=== PATIENT | male | born 1955 | race Caucasian/White ===

== ENCOUNTER 2017-01-22 11:27 | Inpatient (IN) | payer OTHER ==
[2017-01-22] MEDS ORDERED: ONDANSETRON 4 MG/2 ML VIAL IVPUSH ONE (12:14)
[2017-01-22] MEDS ORDERED: SODIUM CHLORIDE 1,000 ML IV SCH ×2 (12:15→15:45)
[2017-01-22 12:19] LABS: BASOPHIL 2.3 % (0-2.0); EOSINOPHIL 0.7 % (0-4.5); MCH 29.5 pg (25.7-33.7); MCHC 34.1 g/dl (32.0-35.9); MEAN CELL VOLUME 86.6 fl (80-96); MEAN PLT VOLUME 9.7 fl (7.5-11.1); NEUTROPHILS 84.4 % (42.8-82.8); PLATELET COUNT 178 K/MM3 (134-434); RDW 12.2 % (11.9-15.9); WHITE BLOOD COUNT 11.9 K/mm3 (4.0-10.8)
[2017-01-22] MEDS ORDERED: ONDANSETRON 4 MG/2 ML VIAL ONE (12:24)
--- NOTE | 2017-01-22 12:25 | PDOC ---
Attending Attestation - Resident Resident Name: Luna Vazquez - ED Attending Attestation I have performed the following: I have examined & evaluated the patient, The case was reviewed & discussed with the resident, I agree w/resident's findings & plan - HPI HPI: 01/22/17 12:23 61 y/o male with abdominal pain since last night. No fever or chills. No SOB or chest pain. Ate some food last night which may not have agreed with him. Feels nauseous but no vomiting. Was in hospital in the past for bowel problems. - Physicial Exam PE: 01/22/17 12:24 VS stable Heent: WNL Heart RRR w/o murmur Lungs CTA b/l no wheezes rhochi or rales Abdomen: LLQ and LUQ tenderness +BS, no RLQ or LRUQ tenderness , no pulsatile masses EXT neg C/C/E Neuro: grossly intact 01/22/17 14:35 EKG NSR @ 60 01/22/17 17:16 Spoke to Hospitalist, Dr. Garibay, accepting physician Called Surgeon Dr. Ramirez, 3x, no response Spoke with Dr. Gonzalez, pt used him last time in hospital, will see pt Family in agreement with plan NGT place by nurse Shafer, 2500cc extracted - Medical Decision Making 01/22/17 17:19 A: SBO, hyperkalemia P: Surgical consult,admission 01/22/17 17:19 Agree with plan and resident Dr. Vazquez
[2017-01-22 12:26] LABS: URINE APPEARANCE Clear; URINE BILIRUBIN Negative (NEGATIVE); URINE BLOOD Negative (NEGATIVE); URINE GLUCOSE (UA) 2+ (NEGATIVE); URINE KETONE Negative (NEGATIVE); URINE LEUK ESTERASE Negative (NEGATIVE); URINE NITRITE Negative (NEGATIVE); URINE UROBILINOGEN 0.2 (0.2-1.0)
[2017-01-22 12:28] LABS: URINE COLOR YELLOW; URINE PROTEIN 1+ (NEGATIVE)
[2017-01-22 12:29] LABS: ALK PHOS 48 U/L (32-92); ANION GAP 7 (8-16); CO2 24 mmol/L (22-28); CREATININE 1.6 mg/dl (0.6-1.3); SGOT/AST 18 U/L (10-42); SGPT/ALT 21 U/L (10-40)
[2017-01-22 12:38] LABS: GLUCOSE,RANDOM 363 mg/dl (74-106)
[2017-01-22] MEDS ORDERED: INSULIN REGULAR HUMAN 100 UNITS/ML *VIAL IVPUSH ONE ×2 (12:38→15:43)
[2017-01-22] MEDS ORDERED: INSULIN REGULAR HUMAN 100 UNITS/ML *VIAL ONE ×2 (12:49→16:14)
[2017-01-22 13:34] LABS: URINE RBC 0-1 /hpf (0-3); URINE WBC 0-3 (3-5)
[2017-01-22] MEDS ORDERED: HEMOQUE CONTROL SOLUTION ONE (14:09)
[2017-01-22] MEDS ORDERED: HEMOQUE TEST 1 EACH EACH ONE ×3 (14:11→18:29)
--- NOTE | 2017-01-22 14:44 | PDOC ---
History of Present Illness - General Chief Complaint: Pain, Acute Stated Complaint: ABD PAIN Time Seen by Provider: 01/22/17 11:37 - History of Present Illness Initial Comments: 61 year old male diabetic (non-insulin dependent) with history of SBO presenting with one day of abdominal pain and distension. Patient states that he has some spicy [place] food in the previous evening and has since had some left sided abdominal pain radiating from his flank to his lower left abdomen. The pain is at worse a 4-5/10 and is described a dull achy pain without relieving or exacerbating factors. He admits to a bit of nausea but no vomiting and is able to keep food down. He has had two bowel movements this morning that he said were formed and were non-bloody. However, he does have some bright red blood occasionally on his toilet paper consistent with his history of internal hemorrhoids. He had a SBO and was admitted for three days in 2013 during which surgical evaluation was considered but his SBO resolved spontaneously. He denies chest pain, palpitations, SOB, diaphoresis, cough, fevers, chills, or other sick symptoms. 01/22/17 16:04 Past History - Past Medical History Allergies/Adverse Reactions: Allergies Allergy/AdvReac Type Severity Reaction Status Date / Time No Known Allergies Allergy Verified 01/22/17 11:31 Home Medications: Ambulatory Orders Amlodipine Besylate [Norvasc -] 10 mg PO DAILY 01/22/17 Aspirin [ASA -] 81 mg PO DAILY 01/22/17 Atorvastatin Ca [Lipitor] 40 mg PO HS 01/22/17 Gabapentin 300 mg PO BID 01/22/17 Glipizide [Glipizide ER] 10 mg PO BID 01/22/17 Lisinopril [Prinivil -] 40 mg PO DAILY 01/22/17 Losartan Potassium [Cozaar] 100 mg PO DAILY 01/22/17 Metformin HCl [Glucophage] 1,000 mg PO BID 01/22/17 Anemia: No Asthma: No Cancer: No Cardiac Disorders: No CVA: No COPD: No CHF: No Dementia: No Diabetes: Yes GI Disorders: No Disorders: No HTN: Yes Hypercholesterolemia: Yes Liver Disease: No Seizures: No Thyroid Disease: No - Immunization History Td Vaccination: No - Psycho/Social/Smoking Cessation Hx Anxiety: No Suicidal Ideation: No Smoking Status: No Smoking History: Never smoked Have you smoked in the past 12 months: No Number of Cigarettes Smoked Daily: 0 Hx Alcohol Use: No Drug/Substance Use Hx: No Substance Use Type: None Hx Substance Use Treatment: No Review of Systems - Review of Systems Constitutional: No: Chills, Diaphoresis, Fever, Loss of Appetite HEENTM: No: Blurred Vision, Recent change in vision Respiratory: No: Cough, Shortness of Breath, Productive cough Cardiac (ROS): No: Chest Pain, Irregular Heart Rate, Lightheadedness, Palpitations ABD/GI: Yes: Abdominal cramping. No: Abdominal Distended, Constipated, Diarrhea : No: Burning, Dysuria, Frequency Integumentary: No: Erythema, Flushing, Lesions *Physical Exam - Vital Signs Last Vital Signs Temp Pulse Resp BP Pulse Ox 97.9 F 64 18 129/78 100 01/22/17 11:31 01/22/17 14:22 01/22/17 14:22 01/22/17 14:22 01/22/17 14:22 - Physical Exam General Appearance: Yes: Nourished, Appropriately Dressed. No: Apparent Distress HEENT: positive: EOMI, KIZZY, Other (ablyopia in his left eye) Neck: positive: Trachea midline, Normal Thyroid, Supple. negative: Tender, Rigid Respiratory/Chest: positive: Lungs Clear, Normal Breath Sounds. negative: Chest Tender, Respiratory Distress, Accessory Muscle Use Cardiovascular: positive: Regular Rhythm, Regular Rate. negative: S1, S2, Edema , Murmur Gastrointestinal/Abdominal: positive: Tender (left upper and lower quadrant tenderness to light palpation), Soft, Increased Bowel Sounds. negative: Normal Bowel Sounds, Flat, Pulsatile Mass, Distended, Guarding, Rebound Musculoskeletal: positive: Normal Inspection. negative: CVA Tenderness, CVA Tenderness (R), CVA Tenderness (L), Decreased Range of Motion Extremity: positive: Normal Inspection, Normal Range of Motion Integumentary: positive: Normal Color, Dry, Warm Neurologic: positive: Fully Oriented, Alert, Normal Mood/Affect, Normal Response ED Treatment Course - LABORATORY CBC & Chemistry Diagram: 01/22/17 12:00 01/22/17 15:00 - ADDITIONAL ORDERS Additional order review: Laboratory Results 01/22/17 01/22/17 01/22/17 12:00 12:00 12:00 Sodium 132 L Potassium 6.4 H* D Chloride 101 Carbon Dioxide 24 Anion Gap 7 L BUN 37 H D Creatinine 1.6 H Creat Clearance w eGFR 44.02 Random Glucose 363 H* D Calcium 9.0 Total Bilirubin 1.0 D AST 18 D ALT 21 Alkaline Phosphatase 48 Total Protein 7.0 Albumin 4.0 Lipase 29 Urine Color Yellow Urine Appearance Clear Urine pH 5.0 Ur Specific [place] 1.015 Urine Protein 1+ H Urine Glucose (UA) 2+ H Urine Ketones Negative Urine Blood Negative Urine Nitrite Negative Urine Bilirubin Negative Urine Urobilinogen 0.2 Ur Leukocyte Esterase Negative Urine RBC 0-1 Urine WBC 0-3 Ur Epithelial Cells 0-3 01/22/17 12:00 RBC 5.44 MCV 86.6 MCHC 34.1 RDW 12.2 MPV 9.7 Neutrophils % 84.4 H D Lymphocytes % 8.7 D Monocytes % 3.9 Eosinophils % 0.7 D Basophils % 2.3 H D - RADIOLOGY Radiology Studies Ordered: Category Date Time Status ABDOMEN & PELVIS CT W/O CONTR [CT] Stat CT Scan 01/22/17 12:53 Taken - Medications Given in the ED: ED Medications Discontinued Medications Generic Name Dose Route Start Last Admin Trade Name Freq PRN Reason Stop Dose Admin Insulin Human Regular 6 units 01/22/17 12:38 01/22/17 12:51 Novolin R Vial *For Ivpush Or Iv Drip Only* IVPUSH 01/22/17 12:39 6 unit ONCE ONE Administration Ondansetron HCl 4 mg 01/22/17 12:14 01/22/17 12:27 Zofran Injection IVPUSH 01/22/17 12:15 4 mg ONCE ONE Administration Medical Decision Making - Medical Decision Making 61 year old male diabetic with PMH of SBO presenting with left sided abdominal pain x 1 day. This is most concerning for repeat episode of SBO vs. gastroparesis. Also highly possible is gastritis or PUD. Less likely but also possible is kidney stone or cholelithiasis although he has not history of these pathologies. CT demonstrating SBO possibly at the top of the descending colon or along transverse colon. Labs significant for hyperglycemia at 336 and hyperkalemia at 6.4 with creatinine of 1.6. 6 of insulin administered with 1 liter normal saline. T waves slightly elevated. Repeat potassium 3 hours later 5.7 so will administer 4 more insulin 1 more liter IV NS/ 2 hr and keep patient NPO with NG tube to suction. 01/22/17 16:34 01/22/17 16:51 We attempted to call the [facility] ([facility]) without response x3 with 30 minute spacing in between. The patient mentioned that he was evaluated by Dr. Gonzalez during his previous admission for SBO in the past and would like to have him evaluate him again. Der. Gonzalez was called at 16:49 and agreed to evaluate the patient at 16:50 PM. We also spoke the medical staff coordinator Dr. Capone at approximately 16:30 01/22/17 17:19 *DC/Admit/Observation/Transfer Diagnosis at time of Disposition: SBO (small bowel obstruction), Hyperkalemia, Hyperglycemia - Discharge Dispostion Condition at time of disposition: Stable Admit: Yes - Attestations Physician Attestion: 01/22/17 15:46 I, Dr. Luna Vazquez, attest that this document has been prepared under my direction and personally reviewed by me in its entirety. I further attest, that it accurately reflects all work, treatment, procedures and medical decision -making performed by me.
[2017-01-22 15:33] LABS: ALBUMIN 3.7 g/dl (3.5-5.0); ALK PHOS 47 U/L (32-92); ANION GAP 5 (8-16); BILIRUBIN,TOTAL 0.6 mg/dl (0.2-1.0); CALCIUM 8.9 mg/dl (8.4-10.2); CO2 28 mmol/L (22-28); CREATININE 1.5 mg/dl (0.6-1.3); GLUCOSE,RANDOM 235 mg/dl (74-106); SGOT/AST 18 U/L (10-42); SGPT/ALT 20 U/L (10-40); TOT PROT 6.7 g/dl (6.4-8.3)
[2017-01-22] MEDS ORDERED: LIDOCAINE HCL 2% JELLY (5 ML/TUBE) ONE ×2 (15:55→16:51)
[2017-01-22] MEDS ORDERED: LIDOCAINE HCL 2% JELLY (30 ML/TUBE) TP ONE (15:56)
[2017-01-22] MEDS ORDERED: INSULIN SLIDING SCALE (NOVOLOG) 1 VIAL SQ SCH (16:30)
--- NOTE | 2017-01-22 18:09 | CONSULT ---
Consult - text type - Consultation Consultation Note: 61 y.o male presents to [facility] with 1 day history of epigastric pain and nausea. Pt with history of SBO 3 years ago treated with NGT decompression. Pt states pain began last evening after dinner and continued this AM. Pt states had 2 small , hard BM today. PMHx- DM, GERD, Renal Insufficiency, Hypertension PSHx- negative Meds-Lisinopril, Losartan Potassium, Norvasc, Gabapentin, Glipizide, Metformin, Lipitor P/E- Gen- Awake, alert but sedated, in NAD Heent- tongue-dry no masses Abd- slight distention, soft, non-tender on palpation No rebound No guarding WBC-11.9 H/H- 16/47.1 K-5.7 (decreased from 6.4) BUN-34 CR-1.5 Glu-235 I- Small Bowel Obstruction Hyperkalemia Rec- NPO Continue NGT decompression OOB Hospitalist to treat K+ level, Glucose Abdominal flat/upright in AM Will follow
[2017-01-22] MEDS ORDERED: ONDANSETRON 4 MG/2 ML VIAL IVPB PRN (19:26)
[2017-01-22 21:11] VITALS: BMI 28.3
[2017-01-22] MEDS: INSULIN SLIDING SCALE (NOVOLOG) 1 VIAL SQ SCH (21:41)
[2017-01-22] MEDS: HEPARIN NA (PORCINE) 5,000 UNITS/ML 1ML VIAL SQ SCH (21:41)
--- NOTE | 2017-01-22 22:29 | HP ---
CHIEF COMPLAINT: abdominal pain PCP: Derrell Kennedy HISTORY OF PRESENT ILLNESS: This is a 61 year old male with significant past medical history of SBO and DM who presented with abdominal pain since last night. + nausea; no vomiting. 2 BMs this morning, hard but otherwise normal. Reports he had a similar episode in 2013, was admitted for 3 days with NGT and it resolved without surgical intervention. ER course was notable for: (1) CT c/w SBO (2) glucose 363, repeat 235 (3) K 6.4, Repeat 5.7 (4) NGT with 2500cc output Recent Travel: pt denies PAST MEDICAL HISTORY: DM, HTN, HLD, SBO, internal hemorrhoids Social History: Smoking: pt denies Alcohol: pt denies Drugs: pt denies Family History: mother , age 80s, CVA father , age 72, OR, DM, CVA brother with OR in his 40s, age 64 brother with OR in 40s, alive sister, BrCA, alive Allergies No Known Allergies Allergy (Verified 01/22/17 11:31) HOME MEDICATIONS: 3 Medication Instructions Recorded Amlodipine Besylate [Norvasc -] 10 mg PO DAILY 01/22/17 Aspirin [ASA -] 81 mg PO DAILY 01/22/17 Atorvastatin Ca [Lipitor] 40 mg PO HS 01/22/17 Gabapentin 300 mg PO BID 01/22/17 Glipizide [Glipizide ER] 10 mg PO BID 01/22/17 Lisinopril [Prinivil -] 40 mg PO DAILY 01/22/17 Losartan Potassium [Cozaar] 100 mg PO DAILY 01/22/17 Metformin HCl [Glucophage] 1,000 mg PO BID 01/22/17 REVIEW OF SYSTEMS CONSTITUTIONAL: Absent: fever, chills, diaphoresis, generalized weakness, malaise, loss of appetite, weight change HEENT: Absent: rhinorrhea, nasal congestion, throat pain, throat swelling, difficulty swallowing, mouth swelling, ear pain, eye pain, visual changes CARDIOVASCULAR: Absent: chest pain, syncope, palpitations, irregular heart rate, lightheadedness , peripheral edema RESPIRATORY: Absent: cough, shortness of breath, dyspnea with exertion, orthopnea, wheezing, stridor, hemoptysis GASTROINTESTINAL: Present: abdominal pain, nausea Absent: abdominal distension, vomiting, diarrhea, constipation, melena, hematochezia GENITOURINARY: Absent: dysuria, frequency, urgency, hesitancy, hematuria, flank pain, genital pain MUSCULOSKELETAL: Absent: myalgia, arthralgia, joint swelling, back pain, neck pain SKIN: Absent: rash, itching, pallor HEMATOLOGIC/IMMUNOLOGIC: Absent: easy bleeding, easy bruising, lymphadenopathy, frequent infections ENDOCRINE: Absent: unexplained weight gain, unexplained weight loss, heat intolerance, cold intolerance NEUROLOGIC: Absent: headache, focal weakness or paresthesias, dizziness, unsteady gait, seizure, mental status changes, bladder or bowel incontinence PSYCHIATRIC: Absent: anxiety, depression, suicidal or homicidal ideation, hallucinations. PHYSICAL EXAMINATION Vital Signs - 24 hr 3 01/22/17 01/22/17 11:31 14:22 16:14 18:36 Temperature 97.9 F 98.8 F 98.6 F Pulse Rate 63 75 Pulse Rate [ 64 67 Apical] Respiratory 16 18 17 16 Rate Blood Pressure 143/94 127/70 Blood Pressure 129/78 119/73 [Left Arm] O2 Sat by Pulse 100 100 97 Oximetry (%) GENERAL: Awake, alert, and fully oriented, in no acute distress. HEAD: Normal with no signs of trauma. EYES: Pupils equal, round and reactive to light, extraocular movements intact, sclera anicteric, conjunctiva clear. No lid lag. EARS, NOSE, THROAT: Ears normal, nares patent, oropharynx clear without exudates. Moist mucous membranes. NECK: Normal range of motion, supple without lymphadenopathy, JVD, or masses. LUNGS: Breath sounds equal, clear to auscultation bilaterally. No wheezes, and no crackles. No accessory muscle use. HEART: Regular rate and rhythm, normal S1 and S2 without murmur, rub or gallop. ABDOMEN: Soft, nontender, not distended, normoactive bowel sounds, no guarding, no rebound, no masses. No hepatomegaly or splenomegaly. MUSCULOSKELETAL: Normal range of motion at all joints. No bony deformities or tenderness. No CVA tenderness. UPPER EXTREMITIES: 2+ pulses, warm, well-perfused. No cyanosis. No clubbing. No peripheral edema. LOWER EXTREMITIES: 2+ pulses, warm, well-perfused. No calf tenderness. No peripheral edema. NEUROLOGICAL: Cranial nerves II-XII intact. Normal speech. Normal gait. PSYCHIATRIC: Cooperative. Good eye contact. Appropriate mood and affect. SKIN: Warm, dry, normal turgor, no rashes or lesions noted, normal capillary refill. Laboratory Results - last 24 hr 3 01/22/17 01/22/17 01/22/17 12:00 12:00 12:00 WBC 11.9 H D RBC 5.44 Hgb 16.0 Hct 47.1 MCV 86.6 MCH 29.5 MCHC 34.1 RDW 12.2 Plt Count 178 MPV 9.7 Neutrophils % 84.4 H D Lymphocytes % 8.7 D Monocytes % 3.9 Eosinophils % 0.7 D Basophils % 2.3 H D Sodium 132 L Potassium 6.4 H* D Chloride 101 Carbon Dioxide 24 Anion Gap 7 L BUN 37 H D Creatinine 1.6 H Creat Clearance w eGFR 44.02 POC Glucometer Random Glucose 363 H* D Calcium 9.0 Total Bilirubin 1.0 D AST 18 D ALT 21 Alkaline Phosphatase 48 Total Protein 7.0 Albumin 4.0 Lipase Urine Color Yellow Urine Appearance Clear Urine pH 5.0 Ur Specific [place] 1.015 Urine Protein 1+ H Urine Glucose (UA) 2+ H Urine Ketones Negative Urine Blood Negative Urine Nitrite Negative Urine Bilirubin Negative Urine Urobilinogen 0.2 Ur Leukocyte Esterase Negative Urine RBC 0-1 Urine WBC 0-3 Ur Epithelial Cells 0-3 3 01/22/17 01/22/17 01/22/17 12:00 15:00 21:32 WBC RBC Hgb Hct MCV MCH MCHC RDW Plt Count MPV Neutrophils % Lymphocytes % Monocytes % Eosinophils % Basophils % Sodium 138 Potassium 5.7 H Chloride 105 Carbon Dioxide 28 Anion Gap 5 L BUN 34 H Creatinine 1.5 H Creat Clearance w eGFR 47.42 POC Glucometer 125 Random Glucose 235 H D Calcium 8.9 Total Bilirubin 0.6 D AST 18 ALT 20 Alkaline Phosphatase 47 Total Protein 6.7 Albumin 3.7 Lipase 29 Urine Color Urine Appearance Urine pH Ur Specific [place] Urine Protein Urine Glucose (UA) Urine Ketones Urine Blood Urine Nitrite Urine Bilirubin Urine Urobilinogen Ur Leukocyte Esterase Urine RBC Urine WBC Ur Epithelial Cells ABDOMEN PELVIS CT W/O CONTR Clinical history: Pain and abdominal distention. Evaluate for SBO. Comparison: 07/26/2013. Contiguous transaxial images were obtained from the diaphragmatic domes and pubic symphysis after the administration of oral contrast. Lung bases: 7 mm nodule left lower lobe on image #2 of series #5. This area was not included on the prior study. She be correlated with a PET scan. Smaller posterior nodule image #3. Tiny subpleural nodule on the left image #9. Mild right posterior atelectatic changes. Minimal anterior and posterior pericardial fluid or thickening. Bone: Osteopenia and degenerative changes. Liver: Negative. Gallbladder: Negative. Biliary tree: Negative. Spleen: Negative. Pancreas: Negative. Adrenals: Small left adrenal adenoma measuring 11 mm. Kidneys: Small nonobstructing calculus right kidney. Pelvis: Distended urinary bladder with mild wall thickening. Mild prostatic enlargement. Free pelvic fluid. Bowel: Distended fluid-filled stomach and small bowel loops with a transition zone suggested in the left mid abdomen. There is fecalization loops. There is question of stricture on the sagittal sequence on image #75 although it is difficult to confirm on the other sequences. There is free fluid in the pelvis, mesentery and around the liver suggesting possible peritonitis. No free air or contrast extravasation is seen. Findings are consistent with a small bowel obstruction. Appendix is unremarkable. Mild diverticulosis. Other: Negative. Impression: Moderately severe small bowel obstruction with fecalization of loops. There is free fluid suggesting possible peritonitis. No free air or extravasation of contrast is seen. Consider repeat imaging to see if the exact point of transition can be delineated. Pulmonary nodules. A 7 mm nodule in the left lower lobe can be evaluated with a PET scan. Other findings as above. Reported By: Tono Leslie MD 01/22/17 1520 CHEST X-RAY PORTABLE* Status post NG tube placement Portable chest x-ray, frontal view. Left lower lateral chest wall and the lateral costophrenic angle was not included. Since prior chest x-ray dated 11/24/2014, the cardiac silhouette remains within normal limits in size. Included lung is clear. Mediastinum and visualized osseous structures appear intact. Distal end of the NG tube is in distal portion of the stomach likely at its junction with the proximal duodenum Impression: Suboptimal examination, as described above. Included lung is clear a Distal and of the NG tube is likely at the junction of the stomach and duodenum. Reported By: Adali Montgomery MD 01/22/17 1744 ECG NSR, Rate 60, QTC [address]/T wave changes ASSESSMENT/PLAN: 61yM with PMH HTN, HLD, DM, SBO, internal hemorrhoids presented to the ED with abdominal pain and nausea. He has been admitted for further evaluation and treatment. SBO - NPO - Cont NGT to suction - surgical consult appreciated - Xray in am - morphine PRN for pain, patient advised judicious use - zofran PRN for nausea Hypokalemia - insulin given in ED, repeat improved, repeat in am DM - po meds held - BGM QID with insulin sliding scale. - A1c in am HTN - po meds on hold. Monitor BP for need for IV enalapril HLD - hold po meds DVT PPX - heparin 5000u SC tid FEN - NS @ 125cc/hr - BMP in am - NPO Dispo: Pt currently requires inpatient management of his emergent condition. Visit type - Emergency Visit Emergency Visit: Yes ED Registration Date: 01/22/17 Care time: The patient presented to the Emergency Department on the above date and was hospitalized for further evaluation of their emergent condition. - New Patient This patient is new to me today: Yes Date on this admission: 01/22/17 - Critical Care Critical Care patient: No
[2017-01-23] MEDS: HEPARIN NA (PORCINE) 5,000 UNITS/ML 1ML VIAL SQ SCH ×3 (05:27→21:17)
[2017-01-23] MEDS: INSULIN SLIDING SCALE (NOVOLOG) 1 VIAL SQ SCH ×3 (06:30→17:35)
--- NOTE | 2017-01-23 08:12 | PN ---
Physical Exam: SUBJECTIVE: Patient seen and examined, reports intermittent abdominal cramping reports flatus. OBJECTIVE: patient is a 61 year old male with significant past medical history of SBO (medical management), hypertension, and DM. Patient was admitted from the emergency department for a SBO. Intake & Output 01/22/17 01/23/17 01/23/17 23:59 07:59 15:59 Intake Total 2000 1125 Output Total 2500 1100 Balance -500 25 Weight 84.538 kg Intake: IV 2000 1125 Normal Saline - 1,000 ml 1125 @ 125 mls/hr IV ASDIR NEGRO Rx#:[id number] Normal Saline - 1,000 ml 2000 @ 500 mls/hr IV ASDIR NEGRO Rx#:[id number] Oral 0 0 Output: Gastric Drainage 2500 400 Urine 700 Void 700 Other: Voiding Method Toilet Toilet Bowel Movement No Height 5 ft 8 in Body Mass Index (BMI) 28.3 Weight Measurement Method Standing Scale Vital Signs Period Temp Pulse Resp BP Sys/Cano Pulse Ox Last 24 Hr 98.5 F-98.6 F 67-96 16-20 117-147/62-74 97-99 GENERAL: The patient is awake, alert, and fully oriented, in no acute distress. HEAD: Normal with no signs of trauma. EYES: PERRL, extraocular movements intact, sclera anicteric, conjunctiva clear. No ptosis. ENT: Ears normal, nares patent, oropharynx clear without exudates, moist mucous membranes. NECK: Trachea midline, full range of motion, supple. LUNGS: Breath sounds equal, clear to auscultation bilaterally, no wheezes, no crackles, no accessory muscle use. HEART: Regular rate and rhythm, S1, S2 without murmur, rub or gallop. ABDOMEN: Soft, diffuse abdominal tenderness, nondistended, hypoactive to bowel sounds to the right lower quadrant, no guarding, no rebound, no hepatosplenomegaly, no masses. NGT billious drainage 400ml of drainage within the past 12 hours EXTREMITIES: 2+ pulses, warm, well-perfused, no edema. NEUROLOGICAL: Cranial nerves II through XII grossly intact. Normal speech, gait not observed. PSYCH: Normal mood, normal affect. SKIN: Warm, dry, normal turgor, no rashes or lesions noted Laboratory Results - last 24 hr 01/22/17 01/23/17 21:32 05:35 POC Glucometer 125 192 Active Medications Generic Name Dose Route Start Last Admin Trade Name Freq PRN Reason Stop Dose Admin Benzocaine/Menthol 1 each 01/22/17 21:47 01/23/17 10:55 Cepacol Lozenge - MM 1 each PRN PRN Administration SORE THROAT Heparin Sodium (Porcine) 5,000 unit 01/22/17 22:00 01/23/17 05:27 Heparin - SQ 5,000 unit TID NEGRO Administration Sodium Chloride 1,000 mls @ 100 mls/hr 01/23/17 08:15 01/23/17 10:53 1/2 Normal Saline IV 100 mls/hr ASDIR NEGRO Administration Insulin Aspart 1 vial 01/22/17 22:00 01/23/17 11:34 Novolog Vial Sliding Scale - SQ 3 units ACHS NEGRO Administration Protocol Morphine Sulfate 2 mg 01/22/17 19:26 Morphine Injection - IVPUSH Q4H PRN PAIN Ondansetron HCl 4 mg 01/22/17 19:26 Zofran Injection IVPB Q6H PRN NAUSEA IMAGING ABDOMEN PELVIS CT W/O CONTR Clinical history: Impression: Moderately severe small bowel obstruction with fecalization of loops. There is free fluid suggesting possible peritonitis. No free air or extravasation of contrast is seen. Consider repeat imaging to see if the exact point of transition can be delineated. Pulmonary nodules. A 7 mm nodule in the left lower lobe can be evaluated with a PET scan. Other findings as above. Reported By: Tono Leslie MD 01/22/17 1520 CHEST X-RAY PORTABLE* Status post NG tube placement Portable chest x-ray, frontal view. Impression: Suboptimal examination, as described above. Included lung is clear a Distal and of the NG tube is likely at the junction of the stomach and duodenum. Reported By: Adali Montgomery MD 01/22/17 3514 ABD FLAT/UPRIGHT XRAY: small bowel obstruction resolving vs partial sbo ECG NSR, Rate 60, QTC [address]/T wave changes ASSESSMENT/PLAN: 1) SBO - abd xray reviewed, partial sbo noted, continue ngt to lcws - continue with serial xrays - surgery, Dr Duarte consulted and following - npo -->ivf 2) DM - continue fingersticks achs with regular insulin coverage - pending hgb a1c, tsh and t4 3) card hypertension - b/p at goal, strict b/p monitoring - may need IV enalapril b/p q6h hyperlipidemia - hold lipitor 4) adria - creatine 1.2 (downtrending) creatine 0.7, likely secondary to hypovolemia - continue iv hydration, repeat bmp in am DVT PPX - heparin 5000u SC tid FEN - 1/2 NS @ 100cc/hr - BMP in am - NPO Dispo: Pt currently requires inpatient management of his emergent condition. Visit type - Emergency Visit Emergency Visit: Yes ED Registration Date: 01/22/17 Care time: The patient presented to the Emergency Department on the above date and was hospitalized for further evaluation of their emergent condition. - New Patient This patient is new to me today: Yes Date on this admission: 01/23/17 - Critical Care Critical Care patient: No - Discharge Referral Referred to [facility] Med P.C.: No
[2017-01-23 08:52] LABS: BASOPHIL 0.3 % (0-2.0); EOSINOPHIL 3.5 % (0-4.5); MCHC 34.3 g/dl (32.0-35.9); MEAN CELL VOLUME 87.5 fl (80-96); MEAN PLT VOLUME 9.5 fl (7.5-11.1); NEUTROPHILS 72.2 % (42.8-82.8); PLATELET COUNT 141 K/MM3 (134-434); RDW 12.1 % (11.9-15.9); WHITE BLOOD COUNT 7.2 K/mm3 (4.0-10.8)
[2017-01-23 08:55] LABS: INR 1.05 (0.82-1.09); PROTHROMBIN TIME (PATIENT) 11.7 SEC (10.2-13.0)
[2017-01-23 09:00] LABS: ALK PHOS 44 U/L (32-92); ANION GAP 6 (8-16); BILIRUBIN,TOTAL 0.9 mg/dl (0.2-1.0); CALCIUM 7.9 mg/dl (8.4-10.2); CO2 23 mmol/L (22-28); CREATININE 1.2 mg/dl (0.6-1.3); GLUCOSE,RANDOM 205 mg/dl (74-106); MAGNESIUM 1.6 mg/dL (1.8-2.4); PHOSPHOROUS 2.7 mg/dl (2.5-4.6); SGOT/AST 14 U/L (10-42); SGPT/ALT 17 U/L (10-40); TOT PROT 5.5 g/dl (6.4-8.3)
[2017-01-23] MEDS ORDERED: MAGNESIUM SULFATE 2 GM in SODIUM CHLORIDE 100 ML IVPB ONE (10:00)
--- NOTE | 2017-01-23 10:10 | EKG ---
Test Reason : Blood Pressure : / mmHG Vent. Rate : 060 BPM Atrial Rate : 060 BPM P-R Int : 192 ms QRS Dur : 094 ms QT Int : 406 ms P-R-T Axes : 063 032 040 degrees QTc Int : 406 ms NORMAL SINUS RHYTHM NORMAL ECG NO PREVIOUS ECGS AVAILABLE Confirmed by BEREKET TERRY MD ([id number]) on 01/23/2017 10:09:53 AM Referred By: VESNA LANGE Confirmed By:BEREKET TERRY MD
[2017-01-23] MEDS: SODIUM CHLORIDE 0.45% 1,000 ML IV SCH (10:53)
[2017-01-23] MEDS: BENZOCAINE/MENTH/CETYLPYRD CL 1 EACH LOZENGE MM PRN ×2 (10:55→22:30)
[2017-01-23 17:24] LABS: THYROXINE (T4) 9.3 ug/dl (4.5-12.1)
[2017-01-23 17:30] LABS: THYROID STIMULATING HORMONE 0.62 uIU/ml (0.358-3.74)
[2017-01-24] MEDS: morphine CARPU-JECT 4 MG/1 ML DISP.SYRIN IVPUSH PRN ×2 (02:37→19:20)
[2017-01-24] MEDS: INSULIN SLIDING SCALE (NOVOLOG) 1 VIAL SQ SCH ×5 (03:18→21:58)
[2017-01-24] MEDS ORDERED: INSULIN (NOVOLOG) ASPART 100 UNITS/ML 10ML VIAL ONE ×3 (06:53→16:24)
[2017-01-24] MEDS: HEPARIN NA (PORCINE) 5,000 UNITS/ML 1ML VIAL SQ SCH ×4 (06:54→21:58)
[2017-01-24 07:58] LABS: BASOPHIL 0.4 % (0-2.0); EOSINOPHIL 1.3 % (0-4.5); MCH 29.8 pg (25.7-33.7); MCHC 34.3 g/dl (32.0-35.9); MEAN CELL VOLUME 86.9 fl (80-96); MEAN PLT VOLUME 8.4 fl (7.5-11.1); NEUTROPHILS 77.6 % (42.8-82.8); PLATELET COUNT 147 K/MM3 (134-434); RDW 11.6 % (11.9-15.9)
[2017-01-24] MEDS: SODIUM CHLORIDE 0.45% 1,000 ML IV SCH (08:30)
[2017-01-24 08:38] LABS: ALBUMIN 3.2 g/dl (3.5-5.0); ALK PHOS 47 U/L (32-92); ANION GAP 7 (8-16); BILIRUBIN,TOTAL 0.8 mg/dl (0.2-1.0); CALCIUM 8.4 mg/dl (8.4-10.2); CO2 24 mmol/L (22-28); CREATININE 1.1 mg/dl (0.6-1.3); GLUCOSE,RANDOM 185 mg/dl (74-106); MAGNESIUM 1.8 mg/dL (1.8-2.4); PHOSPHOROUS 2.7 mg/dl (2.5-4.6); SGOT/AST 14 U/L (10-42); SGPT/ALT 17 U/L (10-40); TOT PROT 5.9 g/dl (6.4-8.3)
--- NOTE | 2017-01-24 11:14 | PN ---
Physical Exam: SUBJECTIVE: Patient seen and examined at bedside. OBJECTIVE: Vital Signs Period Temp Pulse Resp BP Sys/Cano Pulse Ox Last 24 Hr 98.4 F-99.3 F 60-63 17-18 154-173/63-76 97 GENERAL: The patient is awake, alert, and fully oriented, in no acute distress. HEAD: Normal with no signs of trauma. NGT in right nare. LUNGS: Breath sounds equal, clear to auscultation bilaterally, no wheezes, no crackles, no accessory muscle use. HEART: Regular rate and rhythm, S1, S2 without murmur, rub or gallop. ABDOMEN: Soft, nontender, nondistended, hypoactive distant bowel sounds in LUQ, no hepatosplenomegaly, no masses. EXTREMITIES: 2+ pulses, warm, well-perfused, no edema. NEUROLOGICAL: Cranial nerves II through XII grossly intact. Normal speech, gait steady. PSYCH: Normal mood, normal affect. SKIN: Warm, dry, normal turgor, no rashes or lesions noted Laboratory Results - last 24 hr 01/23/17 01/23/17 01/23/17 08:00 08:00 11:33 WBC RBC Hgb Hct MCV MCH MCHC RDW Plt Count MPV Neutrophils % Lymphocytes % Monocytes % Eosinophils % Basophils % Sodium Potassium Chloride Carbon Dioxide Anion Gap BUN Creatinine Creat Clearance w eGFR POC Glucometer 218 Random Glucose Hemoglobin A1c % 8.1 H D Calcium Phosphorus Magnesium Total Bilirubin AST ALT Alkaline Phosphatase Total Protein Albumin TSH 0.62 D 01/23/17 01/23/17 01/24/17 17:34 22:35 06:51 WBC RBC Hgb Hct MCV MCH MCHC RDW Plt Count MPV Neutrophils % Lymphocytes % Monocytes % Eosinophils % Basophils % Sodium Potassium Chloride Carbon Dioxide Anion Gap BUN Creatinine Creat Clearance w eGFR POC Glucometer 162 155 207 Random Glucose Hemoglobin A1c % Calcium Phosphorus Magnesium Total Bilirubin AST ALT Alkaline Phosphatase Total Protein Albumin TSH 01/24/17 01/24/17 07:50 07:50 WBC 9.0 RBC 4.39 Hgb 13.1 Hct 38.2 MCV 86.9 MCH 29.8 MCHC 34.3 RDW 11.6 L Plt Count 147 MPV 8.4 D Neutrophils % 77.6 Lymphocytes % 13.2 Monocytes % 7.5 Eosinophils % 1.3 Basophils % 0.4 Sodium 135 L Potassium 4.3 Chloride 104 Carbon Dioxide 24 Anion Gap 7 L BUN 18 D Creatinine 1.1 Creat Clearance w eGFR > 60 POC Glucometer Random Glucose 185 H Hemoglobin A1c % Calcium 8.4 Phosphorus 2.7 Magnesium 1.8 Total Bilirubin 0.8 AST 14 ALT 17 Alkaline Phosphatase 47 Total Protein 5.9 L Albumin 3.2 L TSH Active Medications Generic Name Dose Route Start Last Admin Trade Name Freq PRN Reason Stop Dose Admin Benzocaine/Menthol 1 each 01/22/17 21:47 01/23/17 22:30 Cepacol Lozenge - MM 1 each PRN PRN Administration SORE THROAT Heparin Sodium (Porcine) 5,000 unit 01/22/17 22:00 01/24/17 06:58 Heparin - SQ Not Given TID NEGRO Sodium Chloride 1,000 mls @ 100 mls/hr 01/23/17 08:15 01/23/17 10:53 1/2 Normal Saline IV 100 mls/hr ASDIR NEGRO Administration Insulin Aspart 1 vial 01/22/17 22:00 01/24/17 06:54 Novolog Vial Sliding Scale - SQ 3 units ACHS NEGRO Administration Protocol Morphine Sulfate 2 mg 01/22/17 19:26 01/24/17 02:37 Morphine Injection - IVPUSH 2 mg Q4H PRN Administration PAIN Ondansetron HCl 4 mg 01/22/17 19:26 Zofran Injection IVPB Q6H PRN NAUSEA ASSESSMENT/PLAN: A: 61yo man with resolving SBO per AXR FAU P: 1. SBO - abd xray reviewed, partial sbo noted, continue ngt to lws - NGT output 2400cc->900cc - continue with serial xrays - surgery, Dr Duarte following - npo->ivf - case d/w Dr. Gonzalez. Start clamping trials if AXR unchanged/improved in AM 2. Hyperkalemia - resolved- likley 2/2 ELOINA 3. DM - FSBG achs - ISS - pending hgb a1c, tsh and t4 4. HTN - b/p elevated - Metoprolol 5mg IV q4h 5. Hyperlipidemia - hold lipitor 6. ELOINA - creatine 1.1 - 1/2NS@100 - repeat bmp in am 7. DVT PPX - sqh - OOB 8. F/E/N - 1/2NS@100 - replete prn - NPO Dispo: Pt currently requires inpatient management of his emergent condition. Visit type - Emergency Visit Emergency Visit: Yes ED Registration Date: 01/22/17 Care time: The patient presented to the Emergency Department on the above date and was hospitalized for further evaluation of their emergent condition. - New Patient This patient is new to me today: Yes Date on this admission: 01/25/17 - Critical Care Critical Care patient: No
[2017-01-24] MEDS: METOPROLOL TARTRATE 5 MG/5 ML VIAL IVPUSH PRN ×2 (14:29→18:08)
--- NOTE | 2017-01-24 15:26 | PN ---
Progress Note (short form) - Note Progress Note: Pt doing better NGT remains in place Pt states has flatus P/E- Abd- less distended; soft, non-tender NGT-900 cc/24 hours today-300cc in 8 hours Abd x-ray- stool, contrast in colon no significant abd distention WBC-9.0 H/H-13/38 K-4.3 BUN/CR-18/1.1 (decreased) P- Cont NGT,NPO X-ray in AM If X-ray unchanged, will clamp NGT and check residuals
[2017-01-24] MEDS: BENZOCAINE/MENTH/CETYLPYRD CL 1 EACH LOZENGE MM PRN (22:17)
[2017-01-25] MEDS: INSULIN SLIDING SCALE (NOVOLOG) 1 VIAL SQ SCH ×4 (04:45→12:07)
[2017-01-25] MEDS: HEPARIN NA (PORCINE) 5,000 UNITS/ML 1ML VIAL SQ SCH ×3 (06:58→22:04)
[2017-01-25 07:53] LABS: BASOPHIL 0.6 % (0-2.0); WHITE BLOOD COUNT 10.6 K/mm3 (4.0-10.8)
[2017-01-25 08:00] LABS: EOSINOPHIL 0.4 % (0-4.5); MCH 29.8 pg (25.7-33.7); MCHC 34.2 g/dl (32.0-35.9); MEAN PLT VOLUME 9.9 fl (7.5-11.1); NEUTROPHILS 79.1 % (42.8-82.8); PLATELET COUNT 138 K/MM3 (134-434); RDW 11.5 % (11.9-15.9)
[2017-01-25 08:16] LABS: ALBUMIN 3.1 g/dl (3.5-5.0); ALK PHOS 48 U/L (32-92); ANION GAP 11 (8-16); BILIRUBIN,TOTAL 1.3 mg/dl (0.2-1.0); CALCIUM 8.4 mg/dl (8.4-10.2); CO2 23 mmol/L (22-28); CREATININE 1.2 mg/dl (0.6-1.3); GLUCOSE,RANDOM 150 mg/dl (74-106); SGOT/AST 13 U/L (10-42); SGPT/ALT 14 U/L (10-40)
[2017-01-25] MEDS: SODIUM CHLORIDE 0.45% 1,000 ML IV SCH (08:30)
--- NOTE | 2017-01-25 11:50 | PN ---
Physical Exam: SUBJECTIVE: Patient seen and examined at bedside. OBJECTIVE: Vital Signs Period Temp Pulse Resp BP Sys/Cano Pulse Ox Last 24 Hr 98.4 F-99.2 F 60-68 17-19 148-187/62-77 95-98 GENERAL: The patient is awake, alert, and fully oriented, in no acute distress. HEAD: Normal with no signs of trauma. NGT in right nare. ENT: Thrush present on tongue. TM's pearly forte with appropriate light reflex. LUNGS: Breath sounds equal, clear to auscultation bilaterally, no wheezes, no crackles, no accessory muscle use. HEART: Regular rate and rhythm, S1, S2 without murmur, rub or gallop. ABDOMEN: Soft, nontender, nondistended, normoactive BS, no hepatosplenomegaly, no masses. EXTREMITIES: 2+ pulses, warm, well-perfused, no edema. NEUROLOGICAL: Cranial nerves II through XII grossly intact. Normal speech, gait steady. PSYCH: Normal mood, normal affect. SKIN: Warm, dry, normal turgor, no rashes or lesions noted Laboratory Results - last 24 hr 01/24/17 01/24/17 01/25/17 16:36 21:56 06:00 WBC 10.6 RBC 4.34 Hgb 12.9 Hct 37.8 MCV 87.0 MCH 29.8 MCHC 34.2 RDW 11.5 L Plt Count 138 MPV 9.9 D Neutrophils % 79.1 Lymphocytes % 9.9 D Monocytes % 10.0 Eosinophils % 0.4 Basophils % 0.6 Sodium Potassium Chloride Carbon Dioxide Anion Gap BUN Creatinine Creat Clearance w eGFR POC Glucometer 159 116 Random Glucose Calcium Total Bilirubin AST ALT Alkaline Phosphatase Total Protein Albumin 01/25/17 01/25/17 06:00 06:11 WBC RBC Hgb Hct MCV MCH MCHC RDW Plt Count MPV Neutrophils % Lymphocytes % Monocytes % Eosinophils % Basophils % Sodium 135 L Potassium 4.0 Chloride 101 Carbon Dioxide 23 Anion Gap 11 BUN 19 H Creatinine 1.2 Creat Clearance w eGFR > 60 POC Glucometer 153 Random Glucose 150 H Calcium 8.4 Total Bilirubin 1.3 H D AST 13 ALT 14 Alkaline Phosphatase 48 Total Protein 6.0 L Albumin 3.1 L Active Medications Generic Name Dose Route Start Last Admin Trade Name Freq PRN Reason Stop Dose Admin Benzocaine/Menthol 1 each 01/22/17 21:47 01/24/17 22:17 Cepacol Lozenge - MM 1 each PRN PRN Administration SORE THROAT Heparin Sodium (Porcine) 5,000 unit 01/22/17 22:00 01/25/17 06:58 Heparin - SQ 5,000 unit TID NEGRO Administration Sodium Chloride 1,000 mls @ 100 mls/hr 01/23/17 08:15 01/24/17 08:30 1/2 Normal Saline IV 100 mls/hr ASDIR NEGRO Administration Insulin Aspart 1 vial 01/22/17 22:00 01/25/17 07:01 Novolog Vial Sliding Scale - SQ 2 units ACHS NEGRO Administration Protocol Metoprolol Tartrate 5 mg 01/24/17 14:05 01/24/17 18:08 Lopressor Injection - IVPUSH 5 mg Q4H PRN Administration HYPERTENSION Morphine Sulfate 2 mg 01/22/17 19:26 01/24/17 19:20 Morphine Injection - IVPUSH 2 mg Q4H PRN Administration PAIN Ondansetron HCl 4 mg 01/22/17 19:26 Zofran Injection IVPB Q6H PRN NAUSEA ASSESSMENT/PLAN: A: 61yo man with resolving SBO per AXR FAU P: 1. SBO - abd xray reviewed, partial sbo noted-> improved from previous films - NGT output 2400cc->900cc->1300cc - NGT with 20 cc residual-> advance to sips of water per Dr. Duarte - continue with serial xrays - surgery, Dr Duarte following - sips of fluid, if tolerates, d/c NGT per Dr. Duarte - Miralax 17g, if moves bowels will d/c NGT - case d/w Dr. Duarte 2. Hyperkalemia - resolved- likley 2/2 ELOINA vs SBO 3. DM - FSBG achs - ISS - pending hgb a1c, tsh and t4 4. HTN - b/p elevated - Metoprolol 5mg IV q4h 5. Hyperlipidemia - hold lipitor 6. ELOINA - creatine 1.2 - 1/2NS@100 - repeat bmp in am 7. Oral thrush - nystatin Swish&Spit 8. PPX - sqh - OOB 9. F/E/N - 1/2NS@100 - replete prn - restart home meds Dispo: Pt currently requires inpatient management of his emergent condition. Visit type - Emergency Visit Emergency Visit: Yes ED Registration Date: 01/22/17 Care time: The patient presented to the Emergency Department on the above date and was hospitalized for further evaluation of their emergent condition. - New Patient This patient is new to me today: No - Critical Care Critical Care patient: No
[2017-01-25] MEDS ORDERED: HURRICAINE SP EXT TUBE 1 EA EACH TP PRN ×2 (14:48→14:50)
[2017-01-25] MEDS ORDERED: POLYETHYLENE GLYCOL 3350 119 GM BTL PO ONE (15:24)
[2017-01-25] MEDS: NYSTATIN 500,000 UNITS/5 ML SUSPENSION PO SCH (17:10)
[2017-01-25] MEDS ORDERED: INSULIN (NOVOLOG) ASPART 100 UNITS/ML 10ML VIAL ONE (17:21)
[2017-01-25] MEDS: METOPROLOL TARTRATE 5 MG/5 ML VIAL IVPUSH PRN (22:26)
[2017-01-26] MEDS: HEPARIN NA (PORCINE) 5,000 UNITS/ML 1ML VIAL SQ SCH ×3 (06:34→21:50)
[2017-01-26] MEDS: INSULIN SLIDING SCALE (NOVOLOG) 1 VIAL SQ SCH ×4 (06:36→21:51)
[2017-01-26] MEDS: NYSTATIN 500,000 UNITS/5 ML SUSPENSION PO SCH ×4 (06:36→17:29)
[2017-01-26 09:14] LABS: ANION GAP 8 (8-16); CALCIUM 8.4 mg/dl (8.4-10.2); CO2 24 mmol/L (22-28); CREATININE 1.2 mg/dl (0.6-1.3); GLUCOSE,RANDOM 187 mg/dl (74-106)
[2017-01-26 09:17] LABS: BASOPHIL 0.4 % (0-2.0); EOSINOPHIL 1.7 % (0-4.5); MCH 29.9 pg (25.7-33.7); MCHC 34.7 g/dl (32.0-35.9); MEAN CELL VOLUME 86.1 fl (80-96); MEAN PLT VOLUME 9.3 fl (7.5-11.1); NEUTROPHILS 75.7 % (42.8-82.8); PLATELET COUNT 136 K/MM3 (134-434); RDW 11.8 % (11.9-15.9)
[2017-01-26] MEDS: ASPIRIN 81 MG CHEWABLE TABLETS PO SCH (09:46)
[2017-01-26] MEDS: LISINOPRIL 20 MG TABLET (FP) PO SCH (09:46)
[2017-01-26] MEDS: amLODIPine BESYLATE 10 MG TABLET (FP) PO SCH (09:46)
[2017-01-26] MEDS: SODIUM CHLORIDE 0.45% 1,000 ML IV SCH (09:56)
--- NOTE | 2017-01-26 10:41 | PN ---
Physical Exam: SUBJECTIVE: Patient seen and examined, patient reports feeling better, denies any abdominal pain, nausea or vomiting. NGT removed OBJECTIVE:bailey is a 61 year old male with significant past medical history of SBO (medical management), hypertension, and DM. Patient was admitted from the emergency department for a SBO. Vital Signs Period Temp Pulse Resp BP Sys/Cano Pulse Ox Last 24 Hr 98.8 F-100.0 F 58-68 18-18 138-172/54-77 97-100 GENERAL: The patient is awake, alert, and fully oriented, in no acute distress. HEAD: Normal with no signs of trauma. EYES: PERRL, extraocular movements intact, sclera anicteric, conjunctiva clear. No ptosis. ENT: Ears normal, nares patent, oropharynx clear without exudates, moist mucous membranes. NECK: Trachea midline, full range of motion, supple. LUNGS: Breath sounds equal, clear to auscultation bilaterally, no wheezes, no crackles, no accessory muscle use. HEART: Regular rate and rhythm, S1, S2 without murmur, rub or gallop. ABDOMEN: Soft, nontender, nondistended, normoactive bowel sounds, diffuse abdominal tenderness, no guarding, no rebound, no hepatosplenomegaly, no masses. EXTREMITIES: 2+ pulses, warm, well-perfused, no edema. NEUROLOGICAL: Cranial nerves II through XII grossly intact. Normal speech, gait not observed. PSYCH: Normal mood, normal affect. SKIN: Warm, dry, normal turgor, no rashes or lesions noted Laboratory Results - last 24 hr 01/25/17 01/25/17 01/25/17 11:40 17:18 22:18 WBC RBC Hgb Hct MCV MCH MCHC RDW Plt Count MPV Neutrophils % Lymphocytes % Monocytes % Eosinophils % Basophils % Sodium Potassium Chloride Carbon Dioxide Anion Gap BUN Creatinine POC Glucometer 173 153 136 Random Glucose Calcium 01/26/17 01/26/17 01/26/17 06:38 07:30 07:30 WBC 9.0 RBC 4.28 Hgb 12.8 Hct 36.8 MCV 86.1 MCH 29.9 MCHC 34.7 RDW 11.8 L Plt Count 136 MPV 9.3 Neutrophils % 75.7 Lymphocytes % 12.2 D Monocytes % 10.0 Eosinophils % 1.7 D Basophils % 0.4 Sodium 134 L Potassium 3.9 Chloride 102 Carbon Dioxide 24 Anion Gap 8 BUN 19 H Creatinine 1.2 POC Glucometer 150 Random Glucose 187 H D Calcium 8.4 Active Medications Generic Name Dose Route Start Last Admin Trade Name Freq PRN Reason Stop Dose Admin Amlodipine Besylate 10 mg 01/26/17 10:00 01/26/17 09:46 Norvasc - PO 10 mg DAILY NEGRO Administration Aspirin 81 mg 01/26/17 10:00 01/26/17 09:46 Asa - PO 81 mg DAILY NEGRO Administration Bandage/Support Products 1 each 01/25/17 14:50 Hurricaine [place] Ext Tube - TP ONCE PRN PAIN Benzocaine/Menthol 1 each 01/22/17 21:47 01/24/17 22:17 Cepacol Lozenge - MM 1 each PRN PRN Administration SORE THROAT Heparin Sodium (Porcine) 5,000 unit 01/22/17 22:00 01/26/17 06:34 Heparin - SQ 5,000 unit TID NEGRO Administration Sodium Chloride 1,000 mls @ 100 mls/hr 01/23/17 08:15 01/26/17 09:56 1/2 Normal Saline IV 100 mls/hr ASDIR NEGRO Administration Insulin Aspart 1 vial 01/22/17 22:00 01/26/17 06:36 Novolog Vial Sliding Scale - SQ Not Given ACHS [facility] Protocol Lisinopril 40 mg 01/26/17 10:00 01/26/17 09:46 Prinivil PO 40 mg DAILY NEGRO Administration Metoprolol Tartrate 5 mg 01/24/17 14:05 01/25/17 22:26 Lopressor Injection - IVPUSH 5 mg Q4H PRN Administration HYPERTENSION Nystatin 500,000 units 01/25/17 18:00 01/26/17 06:36 Nystatin Oral Suspension - PO 500,000 units Q6HPO NEGRO Administration Ondansetron HCl 4 mg 01/22/17 19:26 Zofran Injection IVPB Q6H PRN NAUSEA IMAGING ABDOMEN PELVIS CT W/O CONTR Clinical history: Impression: Moderately severe small bowel obstruction with fecalization of loops. There is free fluid suggesting possible peritonitis. No free air or extravasation of contrast is seen. Consider repeat imaging to see if the exact point of transition can be delineated. Pulmonary nodules. A 7 mm nodule in the left lower lobe can be evaluated with a PET scan. Other findings as above. Reported By: Tono Leslie MD 01/22/17 1520 CHEST X-RAY PORTABLE* Status post NG tube placement Portable chest x-ray, frontal view. Impression: Suboptimal examination, as described above. Included lung is clear a Distal and of the NG tube is likely at the junction of the stomach and duodenum. Reported By: Adali Montgomery MD 01/22/17 7574 ABD FLAT/UPRIGHT XRAY: small bowel obstruction resolving vs partial sbo ECG NSR, Rate 60, QTC [address]/T wave changes ASSESSMENT/PLAN: 1) SBO - abd xray reviewed today, resolved SBO, clear liquid diet then advance as tolerated - surgery, Dr Duarte consulted and following 2) DM - continue fingersticks achs with regular insulin coverage - pending hgb a1c 8.1, tsh wnl 3) card hypertension - b/p at goal, strict b/p monitoring,continue home medications hyperlipidemia - continue lipitor 4) adria - creatine 1.2 (downtrending) creatine 0.7, likely secondary to hypovolemia DVT PPX - heparin 5000u SC tid FEN - clear liguid diet Dispo: Pt currently requires inpatient management of his emergent condition. advance diet as tolerated
[2017-01-26] MEDS ORDERED: INSULIN (NOVOLOG) ASPART 100 UNITS/ML 10ML VIAL ONE ×2 (12:19→21:53)
--- NOTE | 2017-01-26 13:09 | PN ---
Progress Note (short form) - Note Progress Note: Temp-100 degrees; VSS Pt feels well NGT-out Had 2 small, hard BM today No N/V P/E- Abd- non-distended mild tympany on percussion soft, non-tender on palpation WBC-9.0 H/H-12.8/36.8 P- PO clear liquids, advance to soft as tolerated Encouraged pt to start stool softeners at home
[2017-01-26] MEDS: POLYETHYLENE GLYCOL 3350 119 GM BTL PO SCH (15:14)
[2017-01-26] MEDS: SENNOSIDES/DOCUSATE COMBO (SENNA PLUS) TABLET (UD) PO SCH (21:50)
[2017-01-27] MEDS: NYSTATIN 500,000 UNITS/5 ML SUSPENSION PO SCH ×3 (06:34→12:00)
[2017-01-27] MEDS: INSULIN SLIDING SCALE (NOVOLOG) 1 VIAL SQ SCH ×2 (06:35→12:00)
[2017-01-27] MEDS: HEPARIN NA (PORCINE) 5,000 UNITS/ML 1ML VIAL SQ SCH (06:35)
[2017-01-27] MEDS: SENNOSIDES/DOCUSATE COMBO (SENNA PLUS) TABLET (UD) PO SCH (09:35)
[2017-01-27] MEDS: LISINOPRIL 20 MG TABLET (FP) PO SCH (09:35)
[2017-01-27] MEDS: ASPIRIN 81 MG CHEWABLE TABLETS PO SCH (09:35)
[2017-01-27] MEDS: amLODIPine BESYLATE 10 MG TABLET (FP) PO SCH (09:35)
[2017-01-27] MEDS: BENZOCAINE/MENTH/CETYLPYRD CL 1 EACH LOZENGE MM PRN (09:36)
[2017-01-27] MEDS: POLYETHYLENE GLYCOL 3350 119 GM BTL PO SCH (09:38)
[2017-01-27 09:41] VITALS: BP 161/70; PULSE 54; TEMP 98.2
[2017-01-27] MEDS ORDERED: INSULIN (NOVOLOG) ASPART 100 UNITS/ML 10ML VIAL ONE ×2 (11:23→11:25)
--- NOTE | 2017-01-27 12:50 | DS ---
Physical Exam: SUBJECTIVE: Patient seen and examined, patient is tolerating soft diet, denies any abdominal pain. OBJECTIVE:This is a 61 year old male with significant past medical history of SBO and DM who presented with abdominal pain since last night. + nausea; no vomiting. 2 BMs this morning, hard but otherwise normal. Reports he had a similar episode in 2013, was admitted for 3 days with NGT and it resolved without surgical intervention. ER course was notable for: (1) CT c/w SBO (2) glucose 363, repeat 235 (3) K 6.4, Repeat 5.7 (4) NGT with 2500cc output Vital Signs Period Temp Pulse Resp BP Sys/Cano Pulse Ox Last 24 Hr 98.2 F-98.9 F 54-68 17-18 129-167/70-74 100-100 PHYSICAL EXAM GENERAL: The patient is awake, alert, and fully oriented, in no acute distress. HEAD: Normal with no signs of trauma. EYES: PERRL, extraocular movements intact, sclera anicteric, conjunctiva clear. No ptosis. ENT: Ears normal, nares patent, oropharynx clear without exudates, moist mucous membranes. NECK: Trachea midline, full range of motion, supple. LUNGS: Breath sounds equal, clear to auscultation bilaterally, no wheezes, no crackles, no accessory muscle use. HEART: Regular rate and rhythm, S1, S2 without murmur, rub or gallop. ABDOMEN: Soft, nontender, nondistended, normoactive bowel sounds, diffuse abdominal tenderness, no guarding, no rebound, no hepatosplenomegaly, no masses. EXTREMITIES: 2+ pulses, warm, well-perfused, no edema. NEUROLOGICAL: Cranial nerves II through XII grossly intact. Normal speech, gait not observed. PSYCH: Normal mood, normal affect. SKIN: Warm, dry, normal turgor, no rashes or lesions noted LABS Laboratory Results - last 24 hr 01/26/17 01/26/17 01/27/17 16:39 21:46 06:18 POC Glucometer 114 210 145 01/27/17 11:11 POC Glucometer 243 CBC WBC 9.0 K/mm3 (4.0-10.8) 01/26/17 07:30 RBC 4.28 M/mm3 (4.00-5.60) 01/26/17 07:30 Hgb 12.8 GM/dl (11.7-16.9) 01/26/17 07:30 Hct 36.8 % (35.4-49) 01/26/17 07:30 MCV 86.1 fl (80-96) 01/26/17 07:30 MCH 29.9 pg (25.7-33.7) 01/26/17 07:30 MCHC 34.7 g/dl (32.0-35.9) 01/26/17 07:30 RDW 11.8 % (11.9-15.9) L 01/26/17 07:30 Plt Count 136 K/MM3 (134-434) 01/26/17 07:30 MPV 9.3 fl (7.5-11.1) 01/26/17 07:30 Neutrophils % 75.7 % (42.8-82.8) 01/26/17 07:30 Lymphocytes % 12.2 % (8-40) D 01/26/17 07:30 Monocytes % 10.0 % (3.8-10.2) 01/26/17 07:30 Eosinophils % 1.7 % (0-4.5) D 01/26/17 07:30 Basophils % 0.4 % (0-2.0) 01/26/17 07:30 CMP Sodium 134 mmol/L (136-145) L 01/26/17 07:30 Potassium 3.9 mmol/L (3.5-5.1) 01/26/17 07:30 Chloride 102 mmol/L (98-107) 01/26/17 07:30 Carbon Dioxide 24 mmol/L (22-28) 01/26/17 07:30 Anion Gap 8 (8-16) 01/26/17 07:30 BUN 19 mg/dl (7-18) H 01/26/17 07:30 Creatinine 1.2 mg/dl (0.6-1.3) 01/26/17 07:30 Creat Clearance w eGFR > 60 (>60) 01/25/17 06:00 POC Glucometer 243 UNITS (()) 01/27/17 11:11 Random Glucose 187 mg/dl (74-106) H D 01/26/17 07:30 Hemoglobin A1c % 8.1 % (4.8-6.0) H D 01/23/17 08:00 Calcium 8.4 mg/dl (8.4-10.2) 01/26/17 07:30 Phosphorus 2.7 mg/dl (2.5-4.6) 01/24/17 07:50 Magnesium 1.8 mg/dL (1.8-2.4) 01/24/17 07:50 Total Bilirubin 1.3 mg/dl (0.2-1.0) H D 01/25/17 06:00 AST 13 U/L (10-42) 01/25/17 06:00 ALT 14 U/L (10-40) 01/25/17 06:00 Alkaline Phosphatase 48 U/L (32-92) 01/25/17 06:00 Total Protein 6.0 g/dl (6.4-8.3) L 01/25/17 06:00 Albumin 3.1 g/dl (3.5-5.0) L 01/25/17 06:00 Lipase 29 U/L (22-51) 01/22/17 12:00 TSH 0.62 uIU/ml (0.358-3.74) D 01/23/17 08:00 HOSPITAL COURSE: IMAGING ABDOMEN PELVIS CT W/O CONTR Clinical history: Impression: Moderately severe small bowel obstruction with fecalization of loops. There is free fluid suggesting possible peritonitis. No free air or extravasation of contrast is seen. Consider repeat imaging to see if the exact point of transition can be delineated. Pulmonary nodules. A 7 mm nodule in the left lower lobe can be evaluated with a PET scan. Other findings as above. Reported By: Tono Leslie MD 01/22/17 1520 CHEST X-RAY PORTABLE* Status post NG tube placement Portable chest x-ray, frontal view. Impression: Suboptimal examination, as described above. Included lung is clear a Distal and of the NG tube is likely at the junction of the stomach and duodenum. Reported By: Adali Montgomery MD 01/22/17 8236 ABD FLAT/UPRIGHT XRAY: small bowel obstruction resolving vs partial sbo ECG NSR, Rate 60, QTC [address]/T wave changes ASSESSMENT/PLAN: 1) SBO - abd xray reviewed today, resolved SBO, clear liquid diet then advance as tolerated - surgery, Dr Duarte consulted and following 2) DM - continue fingersticks achs with regular insulin coverage - pending hgb a1c 8.1, tsh wnl 3) card hypertension - b/p at goal, strict b/p monitoring,continue home medications hyperlipidemia - continue lipitor 4) adria - creatine 1.2 (downtrending) creatine 0.7, likely secondary to hypovolemia Date of Admission:01/22/17 Date of Discharge: 01/27/17 Minutes to complete discharge: 45 Discharge Summary Reason For Visit: SMALL BOWEL OBSTRUCTION Current Active Problems Hyperglycemia (Acute) Hyperkalemia (Acute) SBO (small bowel obstruction) (Acute) Condition: Stable - Instructions Diet, Activity, Other Instructions: continue soft high fiber diet use aircast to your left ankle while awake if pain is not improved within 5 days please follow up with the orthopedist if abdominal pain, nausea/vomiting, or fever develops please return to the emergency department please follow up with your primary care physician within 1 week Referrals: Alexis Gonzalez MD [Staff Physician] - Collins Hernandez MD [Staff Physician] - Luana Herrera MD [Staff Physician] - Disposition: HOME - Home Medications Comprehensive Discharge Medication List: Ambulatory Orders Amlodipine Besylate [Norvasc -] 10 mg PO DAILY 01/22/17 Aspirin [ASA -] 81 mg PO DAILY 01/22/17 Atorvastatin Ca [Lipitor] 40 mg PO HS 01/22/17 Gabapentin 300 mg PO BID 01/22/17 Lisinopril [Prinivil -] 40 mg PO DAILY 01/22/17 Sitagliptin Phos/Metformin HCl [Janumet 50-1,000 mg Tablet] 1 each PO BID - Discharge Referral Referred to [facility] No
--- NOTE | 2017-01-27 21:10 | EKG ---
Test Reason : Blood Pressure : / mmHG Vent. Rate : 054 BPM Atrial Rate : 054 BPM P-R Int : 156 ms QRS Dur : 096 ms QT Int : 468 ms P-R-T Axes : 058 018 038 degrees QTc Int : 443 ms SINUS BRADYCARDIA OTHERWISE NORMAL ECG WHEN COMPARED WITH ECG OF 22-JAN-2017 12:46, NO SIGNIFICANT CHANGE WAS FOUND Confirmed by TRE KENDRICK MD ([id number]) on 01/27/2017 9:09:46 PM Referred By: [facility] Confirmed By:TRE KENDRICK MD
== END 2017-01-27 14:20 | disposition home or self-care (01) | DRG 247 ==
LOC: FER 11:27 → FM/S 16:14
PROVIDERS: ADMIT Internal Medicine; ATTEND Nurse Practitioner Family
DX: K56.69 Other intestinal obstruction (principal); E87.5 Hyperkalemia; E11.65 Type 2 diabetes mellitus with hyperglycemia; K64.8 Other hemorrhoids; I10 Essential (primary) hypertension; N17.9 Acute kidney failure, unspecified; B37.0 Candidal stomatitis; E78.5 Hyperlipidemia, unspecified; E86.1 Hypovolemia
CPT/HCPCS: 36415; 71010-TC; 73610-TC-LT; 73630-TC-LT; 74020-TC; 74176-TC; 80048; 80053; 81003; 81015; 83036; 83690; 83735; 84100; 84436; 84443; 85025; 85610; 93005; 93010; 99285-25; J1644

== ENCOUNTER 2017-04-23 01:44 | Emergency (ER) | payer OTHER ==
[2017-04-23 01:50] VITALS: BP 152/100; PULSE 79; TEMP 97.7; BMI 25.8
--- NOTE | 2017-04-23 02:04 | PDOC ---
History of Present Illness - General Chief Complaint: Pain Stated Complaint: L HAND PAIN/SWELLING Time Seen by Provider: 04/23/17 01:54 - History of Present Illness Initial Comments: 04/23/17 02:14 Chief complaint: Pain and swelling of the left hand History of present illness: Patient noted pain and swelling of the dorsum of the left hand, primarily over the second and third MCP joints. There is stiffness and he has difficulty making a fist. He is right handed, does not do any work or repetitive or otherwise with either hand, and recalls no injury. There has been no rash or skin irritation in that area. Review of systems: As above. In addition there is been no chest pain, shortness of breath, abdominal pain, nausea, vomiting, diarrhea, visual or focal neurologic symptoms, unsteadiness of gait Past medical history: [id number] diabetes for 10 years on Janumet, high blood pressure, elevated cholesterol, chronic low back pain. The patient also states that he has had one prior episode of joint pain and swelling, this being his left ankle, that was not related to trauma and resolved in several days spontaneously. No other joint pain or swelling in the past. Medications: Norvasc, lisinopril, baby aspirin, Lipitor, gabapentin. No diuretics. Social/family history reviewed and noncontributory. Patient denies eating significant amounts of organ meat, red meats in general, or other unusual dietary practices. Physical exam: Alert and oriented well-developed well-nourished no acute distress cooperative Afebrile, vital signs normal HEENT clear Neck supple without bruit mass or nodes Chest clear CV regular without murmur rub or gallop Abdomen benign Neurological intact Extremities: There is swelling and tenderness over the dorsum of the left hand, primarily the second and third metacarpal phalangeal joints. There is minimal erythema, and no appreciable warmth, and no fluctuance. There is no deformity of these joints, nor any other deformity of the hand or wrist. Pulses are full. No distal sensory deficits. Because of the swelling, the patient is unable to make a fist, but his strength appears intact in the intrinsic muscles of the hand and with wrist flexion and extension. Capillary refill is intact. He has a contracture of the palm. Impression: Mild arthritis, possibly gout, possibly partially treated with the administration of Advil at home, 600 mg approximately one hour before presenting to the emergency department. There is no skin disruption or other skin lesion that is suggestive of a possible portal of entry for infection. Plan: CBC, chemistries, and uric acid. 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 Past History - Past Medical History Allergies/Adverse Reactions: Allergies Allergy/AdvReac Type Severity Reaction Status Date / Time No Known Allergies Allergy Verified 01/22/17 11:31 Home Medications: Ambulatory Orders Amlodipine Besylate [Norvasc -] 10 mg PO DAILY 01/22/17 Aspirin [ASA -] 81 mg PO DAILY 01/22/17 Atorvastatin Ca [Lipitor] 40 mg PO HS 01/22/17 Gabapentin 300 mg PO BID 01/22/17 Lisinopril [Prinivil -] 40 mg PO DAILY 01/22/17 Naproxen [Naprosyn] 375 mg PO BID #10 tablet 04/23/17 Sitagliptin Phos/Metformin HCl [Janumet 50-500 mg Tablet] 50 mg PO BID 04/23/17 Anemia: No Asthma: No Cancer: No Cardiac Disorders: No CVA: No COPD: No CHF: No DVT: No Dementia: No Diabetes: Yes GI Disorders: No Disorders: No HTN: Yes Hypercholesterolemia: Yes Liver Disease: No Seizures: No Thyroid Disease: No - Immunization History Td Vaccination: No - Suicide/Smoking/Psychosocial Hx Smoking Status: No Smoking History: Never smoked Have you smoked in the past 12 months: No Number of Cigarettes Smoked Daily: 0 Information on smoking cessation initiated: No Hx Alcohol Use: No Drug/Substance Use Hx: No Substance Use Type: None Hx Substance Use Treatment: No *Physical Exam - Vital Signs Last Vital Signs Temp Pulse Resp BP Pulse Ox 97.7 F 79 14 152/100 100 04/23/17 01:48 04/23/17 01:48 04/23/17 01:48 04/23/17 01:48 04/23/17 01:48 ED Treatment Course - LABORATORY CBC & Chemistry Diagram: 04/23/17 02:15 04/23/17 02:15 Medical Decision Making - Medical Decision Making 04/23/17 03: Uric acid is 9.7. BUN 36, creatinine 1.4. Glucose is 90. Otherwise no significant abnormalities. The patient likely has gout, precipitated by diet high in red meat and mild dehydration The hand was splinted loosely for comfort, and the patient was advised to push by mouth fluids. 2 doses of colchicine were administered one hour apart. He was prescribed Naprosyn for tomorrow. Instructed to follow-up with his primary physician or return to ER if the symptoms are worse or if he has significant side effects to the medications. A low purine diet was provided. Patient was fully ambulatory and in no significant pain or distress upon discharge with his to follow-up as directed 04/23/17 03:40 *DC/Admit/Observation/Transfer Diagnosis at time of Disposition: Gout Qualifiers: Gout site: hand Gout etiology: idiopathic Chronicity: acute Laterality: left Qualified Code(s): M10.042 - Idiopathic gout, left hand - Discharge Dispostion Condition at time of disposition: Good Admit: No - Prescriptions Prescriptions: Naproxen [Naprosyn] 375 mg PO BID #10 tablet - Referrals Referrals: Derrell Kennedy MD, MD [Primary Care Provider] - 2 Days - Patient Instructions Printed Discharge Instructions: DI for Gout, Low-Purine Diet Additional Instructions: Rest and elevate and splint for comfort. Return to ER if there is fever, increased pain or swelling, otherwise see primary physician for follow-up in
[2017-04-23] MEDS ORDERED: COLCHICINE 0.6 MG TABLET (FP) ONE ×2 (02:27→03:35)
[2017-04-23] MEDS ORDERED: COLCHICINE 0.6 MG TABLET (FP) PO ONE ×2 (02:28→03:34)
[2017-04-23 02:33] LABS: BASOPHIL 0.3 % (0-2.0); EOSINOPHIL 1.8 % (0-4.5); MCH 29.7 pg (25.7-33.7); MCHC 34.6 g/dl (32.0-35.9); MEAN CELL VOLUME 85.8 fl (80-96); MEAN PLT VOLUME 8.9 fl (7.5-11.1); PLATELET COUNT 177 K/MM3 (134-434); RDW 14.1 % (11.9-15.9); WHITE BLOOD COUNT 10.3 K/mm3 (4.0-10.0)
[2017-04-23 03:11] LABS: ALBUMIN 3.9 g/dl (3.4-5.0); ALK PHOS 58 U/L (45-117); ANION GAP 11 (8-16); BILIRUBIN,TOTAL 0.2 mg/dL (0.2-1.0); CALCIUM 8.4 mg/dL (8.5-10.1); CO2 21 mmol/L (21-32); CREATININE 1.4 mg/dL (0.7-1.3); GLUCOSE,RANDOM 90 mg/dL (74-106); SGOT/AST 15 U/L (15-37); SGPT/ALT 23 U/L (12-78); TOT PROT 7.2 g/dl (6.4-8.2)
[2017-04-23] MEDS ORDERED: KETOROLAC TROMETHAMINE 60 MG/2 ML VIAL IM ONE (03:16)
[2017-04-23] MEDS ORDERED: KETOROLAC TROMETHAMINE 60 MG/2 ML VIAL ONE (03:21)
== END 2017-04-23 03:34 | disposition home or self-care (01) ==
LOC: FER 01:44
PROC: 2W3DX1Z Immobilization of Left Lower Arm using Splint (ICD-10-PCS; principal; 2017-04-23)
PROC: 3E0233Z Introduction of Anti-inflammatory into Muscle, Percutaneous Approach (ICD-10-PCS; 2017-04-23)
DX: M10.042 Idiopathic gout, left hand (principal); E11.9 Type 2 diabetes mellitus without complications; I10 Essential (primary) hypertension; E78.00 Pure hypercholesterolemia, unspecified
CPT/HCPCS: 36415; 80053; 84550; 85025; 99283-25

== ENCOUNTER 2019-03-16 06:32 | Emergency (ER) | payer OTHER ==
--- NOTE | 2019-03-16 06:36 | PDOC ---
History of Present Illness - General Chief Complaint: Pain Stated Complaint: PAIN AND SWELLING TO LEFT FOOT Time Seen by Provider: 03/16/19 06:36 - History of Present Illness Initial Comments: 03/16/19 06:57 This 63-year-old man with a history of DM/HTN/gout presents with 1 day history of left first MTP foot redness, edema and pain. Patient recently had toenail of the right hallux removed and believes he has been favoring the right foot, stressing the left foot. Yesterday afternoon, he began to have pain in the left great toe. No history of trauma. He has a history of gout in the past for which he has been seen in this ER and treated with nonsteroidal anti- inflammatory medications. No recent fever/chills or other systemic systems Past History - Past Medical History Allergies/Adverse Reactions: Allergies Allergy/AdvReac Type Severity Reaction Status Date / Time No Known Allergies Allergy Verified 03/16/19 06:33 Home Medications: Ambulatory Orders Allopurinol [Zyloprim -] 300 mg PO DAILY 03/16/19 Atorvastatin Calcium [Lipitor] 20 mg PO DAILY 03/16/19 Doxycycline Hyclate 100 mg PO BID 03/16/19 Enalapril Maleate 5 mg PO DAILY 03/16/19 Gabapentin 100 mg PO TID 03/16/19 Glipizide [Glipizide ER] 10 mg PO DAILY 03/16/19 Lisinopril [Prinivil -] 40 mg PO DAILY 03/16/19 Naproxen [Naprosyn -] 375 mg PO BID PRN #14 tablet 03/16/19 Tamsulosin HCl 0.4 mg PO DAILY 03/16/19 Anemia: No Asthma: No Cancer: No Cardiac Disorders: No CVA: No COPD: No CHF: No DVT: No Dementia: No Diabetes: Yes GI Disorders: No Disorders: No HTN: Yes Hypercholesterolemia: Yes Liver Disease: No Seizures: No Thyroid Disease: No - Immunization History Td Vaccination: No - Psycho Social/Smoking Cessation Hx Smoking Status: No Smoking History: Never smoked Have you smoked in the past 12 months: No Number of Cigarettes Smoked Daily: 0 Hx Alcohol Use: No Drug/Substance Use Hx: No Substance Use Type: None Hx Substance Use Treatment: No *Physical Exam - Physical Exam Comments: GENERAL: HEAD: Normal with no signs of trauma. EYES: PERRLA, EOMI, sclera anicteric, conjunctiva clear. EXTREMITIES: Left lower extremity-mild edema, moderate erythema, moderate tenderness first MTP joint No other inflammation/ erythema/tenderness of great toe or other toes. No lymphangitic streaking, no fluctuance/discharge. NEUROLOGICAL: Cranial nerves II through XII grossly intact. Normal speech. No focal neurological deficits. MUSCULOSKELETAL: Back non-tender to palpation, no CVA tenderness SKIN: Warm, Dry, normal turgor, no rashes or lesions noted. Medical Decision Making - Medical Decision Making Medical Decision Making: Clinical presentation most consistent with acute podagra/left first MTP acute gout. Patient states that in the past, he has had good relief with Toradol shot given here in the emergency room. He has never been prescribed colchicine by his PMD. He has taken nonsteroidal anti-inflammatory medications in a limited prescription. Toradol 60 mg IM and administered. Patient will be discharged with prescription for Naprosyn 375 twice a day as needed for pain; this should be taken with food at all times. He should follow-up with his staff scientist as scheduled in the next 48 hours ( wound check of his left great toenail removal). He should also plan on following up with his general medical doctor within the next 5-7 days. If he has persistent severe pain in his left great toe, he should return to the ER. He has been given instructions regarding a low purine diet and printout of list of foods to avoid given to him (and copy given to his son) *DC/Admit/Observation/Transfer Diagnosis at time of Disposition: Gout Qualifiers: Gout site: foot Gout etiology: unspecified cause Chronicity: acute Laterality: left Qualified Code(s): M10.9 - Gout, unspecified - Discharge Dispostion Disposition: HOME Condition at time of disposition: Stable - Prescriptions Prescriptions: Naproxen [Naprosyn -] 375 mg PO BID PRN #14 tablet PRN Reason: Pain - Referrals Referrals: Derrell Kennedy MD, MD [Primary Care Provider] - - Patient Instructions Printed Discharge Instructions: Gout, Low-Purine Diet Additional Instructions: drink plenty of water maintain low purine diet Naprosyn 375mg twice a day as needed for paintake with food Follow-up with your staff scientist within the next 2 days as scheduled Follow-up with your general medical doctor within the next 5-7 days Return to ER if you have severe pain/increased swelling/increased redness or you develop fever - Post Discharge Activity Discharge - Discharge Information Problems reviewed: Yes Clinical Impression/Diagnosis: Gout Qualifiers: Gout site: foot Gout etiology: unspecified cause Chronicity: acute Laterality: left Qualified Code(s): M10.9 - Gout, unspecified Condition: Stable Disposition: HOME - Admission No - Additional Discharge Information Prescriptions: Naproxen [Naprosyn -] 375 mg PO BID PRN #14 tablet PRN Reason: Pain - Follow up/Referral Referrals: Derrell Kennedy MD, MD [Primary Care Provider] - - Patient Discharge Instructions Patient Printed Discharge Instructions: Gout, Low-Purine Diet Additional Instructions: drink plenty of water maintain low purine diet Naprosyn 375mg twice a day as needed for paintake with food Follow-up with your staff scientist within the next 2 days as scheduled Follow-up with your general medical doctor within the next 5-7 days Return to ER if you have severe pain/increased swelling/increased redness or you develop fever - Post Discharge Activity
[2019-03-16 06:47] VITALS: BP 157/94; PULSE 78; TEMP 98; BMI 27.3
[2019-03-16] MEDS ORDERED: KETOROLAC TROMETHAMINE 60 MG/2 ML VIAL IM ONE (06:47)
[2019-03-16] MEDS ORDERED: KETOROLAC TROMETHAMINE 60 MG/2 ML VIAL ONE (06:49)
== END 2019-03-16 07:01 | disposition home or self-care (01) ==
LOC: FER 06:32
PROC: 3E0233Z Introduction of Anti-inflammatory into Muscle, Percutaneous Approach (ICD-10-PCS; principal; 2019-03-16)
DX: M10.9 Gout, unspecified (principal); I10 Essential (primary) hypertension
CPT/HCPCS: 99281-25

== ENCOUNTER 2019-08-10 19:49 | Emergency (ER) | payer OTHER, MEDICARE ==
[2019-08-10 19:58] VITALS: BP 157/77; PULSE 85; TEMP 97.8; BMI 29.6
--- NOTE | 2019-08-11 07:32 | PDOC ---
Documentation entered by Ashlyn Topete SCRIBE, acting as scribe for Sherman Lebron MD. Sherman Johnston MD: This documentation has been prepared by the Yoselyn purcell Nirvannie, SCRIBE, under my direction and personally reviewed by me in its entirety. I confirm that the documentation accurately reflects all work, treatment, procedures, and medical decision making performed by me. History of Present Illness - General Chief Complaint: Blood Sugar Problem Stated Complaint: HIGH BLOOD SUGAR History Source: Patient Exam Limitations: No Limitations - History of Present Illness Initial Comments: 08/10/19 20:17 The patient is a 64 year old male, with a significant past medical history of diabetes, diabetic neuropathy, hypertension, hyperlipidemia, BPH, and gout, who presents to the emergency department with elevated blood glucose level. As per patient, he checked his blood glucose level for the first time in a prolonged period of time secondary feeling mildly dizzy and weak at which time he observed a reading within the 300s. Patient notes to have recently gained a significant amount of weight over the course of the past 6 months secondary to dietary noncompliance. Patient additionally notes being compliant with medications 75% of the time. He notes over the course of the past 6 months associated polyuria. While in the ED, patient notes to feel at his baseline. He has a pending appointment with his PCP in 2 days. He denies any recent polydipsia.He denies any focal changes in vision, strength , or sensation. He denies any recent nausea, vomit, diarrhea or constipation. He denies any recent chest pain or shortness of breath. He denies any recent dysuria or hematuria. Allergies: NKDA Past surgical history: None reported. Social History: Former smoker. Denies EtOH use and recreational drug use. Familial History: Reviewed and noncontributory. Medications: Metformin, Allopurinol, Acarbose, Enalapril, Gabapentin, Atorvastin , Tamosulin Primary Care Physician: Dr. Kennedy Past History - Past Medical History Allergies/Adverse Reactions: Allergies Allergy/AdvReac Type Severity Reaction Status Date / Time No Known Allergies Allergy Verified 08/10/19 19:50 Home Medications: Ambulatory Orders Acarbose [Precose -] 50 mg PO TID 08/10/19 Allopurinol 300 mg PO DAILY 08/10/19 Atorvastatin Ca [Lipitor] 20 mg PO HS 08/10/19 Enalapril Maleate 5 mg PO DAILY 08/10/19 Gabapentin 300 mg PO TID 08/10/19 Tamsulosin HCl [Flomax] 0.4 mg PO DAILY 08/10/19 metFORMIN XR [Glucophage *Xr* -] 500 mg PO BID 08/10/19 Anemia: No Asthma: No Cancer: No Cardiac Disorders: No CVA: No COPD: No CHF: No DVT: No Dementia: No Diabetes: Yes GI Disorders: No Disorders: No HTN: Yes Hypercholesterolemia: Yes Liver Disease: No Seizures: No Thyroid Disease: No - Immunization History Td Vaccination: No - Psycho Social/Smoking Cessation Hx Smoking Status: No Smoking History: Never smoked Have you smoked in the past 12 months: No Number of Cigarettes Smoked Daily: 0 If you are a former smoker, when did you quit?: 25 YEARS AGO Hx Alcohol Use: No Drug/Substance Use Hx: No Substance Use Type: None Hx Substance Use Treatment: No Review of Systems - Review of Systems Able to Perform ROS?: Yes Comments:: 08/10/19 20:17 CONSTITUTIONAL: Present: Elevated blood glucose. Absent: fever, no chills, no fatigue EYES: Absent: visual changes ENT: Absent: ear pain, no sore throat CARDIOVASCULAR: Absent: chest pain, no palpitations RESPIRATORY: Absent: cough, no SOB GI: Absent: abdominal pain, no nausea, no vomiting, no constipation, no diarrhea GENITOURINARY: Absent: dysuria, no frequency, no hematuria MUSKULOSKELETAL: Absent: back pain, no arthralgia, no myalgia SKIN: Absent: rash NEURO: Absent: headache All Other Systems: Reviewed and Negative *Physical Exam - Vital Signs Last Vital Signs Temp Pulse Resp BP Pulse Ox 97.8 F 85 18 157/77 97 08/10/19 19:50 08/10/19 19:50 08/10/19 19:50 08/10/19 19:50 08/10/19 19:50 - Physical Exam 08/10/19 20:18 GENERAL: Well developed, well nourished. Awake and alert. No acute distress. HEENT: Normocephalic, atraumatic. PERRLA, EOMI. No conjunctival pallor. Sclera are non- icteric. Moist mucous membranes. Oropharynx is clear. NECK: Supple. Full ROM. No JVD. Carotid pulses 2+ and symmetric, without bruits. No thyromegaly. No lymphadenopathy. CARDIOVASCULAR: Regular rate and rhythm. No murmurs, rubs, or gallops. Distal pulses are 2+ and symmetric. PULMONARY: No evidence of respiratory distress. Lungs clear to auscultation bilaterally. No wheezing, rales or rhonchi. ABDOMINAL: Soft. Non-tender. Non-distended. No rebound or guarding. No organomegaly. Normoactive bowel sounds. MUSCULOSKELETAL Normal range of motion at all joints. No bony deformities or tenderness. No CVA tenderness. EXTREMITIES: +Mild peripheral neuropathy to the bilateral lower extremities. No cyanosis. No clubbing. No edema. No calf tenderness. SKIN: Warm and dry. Normal capillary refill. No rashes. No jaundice. NEUROLOGICAL: Alert, awake, appropriate. Cranial nerves 2-12 intact. No deficits to light touch and temperature in face, upper extremities and lower extremities. No motor deficits in the in face, upper extremities and lower extremities. Normoreflexic in the upper and lower extremities. Normal speech. Toes are down- going bilaterally. Gait is normal without ataxia. PSYCHIATRIC: Cooperative. Good eye contact. Appropriate mood and affect. ED Treatment Course - ADDITIONAL ORDERS Additional order review: Laboratory Results 08/10/19 20:00 POC Glucometer 333 08/10/19 20:00 POC Glucometer 333 Medical Decision Making - Medical Decision Making 08/11/19 07:29 Patient admits that he "has not been taking care of himself". Checked his sugar for the first time today in months, found that it was over 400. Took his Metformin and it came down to the 300s. Has been asymptomatic, denying polyuria , polydipsia, chest pain, shortness of breath, abdominal pain, nausea, vomiting , diarrhea, dysuria or frequency, recent fever/chills, URI, sore throat, cough. He admits that he has gained a considerable amount of weight and he has not been adhering to his diabetic diet. Sugar was in the low 300s. Physical exam was normal, including ENT, lungs, heart, and abdomen. There was no sign of occult infection. He was encouraged to resume his diabetic medications as directed, increase exercise, initiate weight loss, and follow diabetic diet. Follow-up with primary physician in 24 hours for further evaluation and treatment. Fully ambulatory in no distress at discharge with son. Discharge - Discharge Information Problems reviewed: Yes Clinical Impression/Diagnosis: Hyperglycemia Condition: Stable Disposition: HOME - Admission No - Follow up/Referral Referrals: Derrell Kennedy MD, [Primary Care Provider] - 24 hours - Patient Discharge Instructions Patient Printed Discharge Instructions: DI for Hyperglycemia -- Adult, Combination of Diet and Exercise May be Most Effective Weight Loss Tool for Additional Instructions: Take your medications as directed. Follow diabetic diet. Increase exercise. Weight loss. See primary physician to recheck your sugar and consider more effective medications. - Post Discharge Activity
== END 2019-08-10 20:24 | disposition home or self-care (01) ==
LOC: FER 19:49
DX: E11.65 Type 2 diabetes mellitus with hyperglycemia (principal); I10 Essential (primary) hypertension; E78.00 Pure hypercholesterolemia, unspecified; Z87.891 Personal history of nicotine dependence
CPT/HCPCS: 82962; 99282-25

== ENCOUNTER 2022-01-18 18:07 | Emergency (ER) | payer OTHER ==
[2022-01-18 18:19] VITALS: BP 101/75; TEMP 98.5
[2022-01-18] MEDS ORDERED: morphine CARPU-JECT 2 MG/1 ML DISP.SYRIN IM ONE (18:24)
[2022-01-18] MEDS ORDERED: CYCLOBENZAPRINE HCL 10 MG TABLET (FP) PO ONE (18:25)
[2022-01-18 18:38] VITALS: BMI 26.4
[2022-01-18] MEDS ORDERED: CYCLOBENZAPRINE HCL 5 MG TABLET ONE (18:38)
[2022-01-18] MEDS ORDERED: morphine SULFATE 4 MG/ML VIAL ONE (18:42)
[2022-01-18 19:01] LABS: HEMATOCRIT 39.4 % (35.4-49); HEMOGLOBIN 13.9 G/dL (11.7-16.9); MCH 32.1 pg (25.7-33.7); MCHC 35.2 g/dl (32.0-35.9); MEAN CELL VOLUME 91.3 fl (80-96); MEAN PLT VOLUME 9.1 fl (7.5-11.1); PLATELET COUNT 163.9 10^3/uL (134-434); RBC 4.32 10^6/uL (4.00-5.60); RDW 14.8 % (11.9-15.9); WHITE BLOOD COUNT 13.5 10^3/uL (4.0-10.8)
[2022-01-18 19:15] LABS: ALBUMIN 3.4 g/dl (3.4-5.0); BILIRUBIN,TOTAL 1.3 mg/dl (0.2-1); CALCIUM 8.7 mg/dl (8.5-10); CREATININE 2.5 mg/dl (0.55-1.3); TOT PROT 6.8 g/dl (6.4-8.2)
[2022-01-18 19:29] VITALS: PULSE 89; RESP 18
== END 2022-01-18 19:30 | disposition home or self-care (01) ==
LOC: FER 18:07
PROC: 3E023GC Introduction of Other Therapeutic Substance into Muscle, Percutaneous Approach (ICD-10-PCS; principal; 2022-01-18)
DX: S16.1XXA Strain of muscle, fascia and tendon at neck level, initial encounter (principal); X50.9XXA Other and unspecified overexertion or strenuous movements or postures, initial encounter
CPT/HCPCS: 36415; 80053; 85027; 99284-25